=== PATIENT | male | born 1990 | race Caucasian/White ===

== ENCOUNTER 2021-10-04 20:35 | Inpatient (IN) | payer OTHER ==
--- NOTE | 2021-10-04 21:22 | ED ---
Recheck HPI - General Chief Complaint: Recheck/Abnormal Lab/Rx Stated Complaint: Abnormal Labs Time Seen by Provider: 10/04/21 20:50 Source: patient, RN/MD, EMS, RN notes reviewed Mode of arrival: EMS - History of Present Illness Initial Comments: 30-year-old male with a benign past medical history but a family history of a second cousin leukemia who presents by EMS from [facility] after being found to be anemic with a hemoglobin level IV.7 and a negative workup with r espect to CAT scans of the head neck chest abdomen pelvis. Hemoccult was negative. He had no history of tarry stools any type of GI bleeding. He does state that he has been feeling fatigued and having generalized weakness sleeping a lot more than normal over the past month getting progressively worse. He did have a headache and some neck pain. He is sleepy more everyday basically states he's been laying on the couch. He has had weight loss decreased appetite says sure exactly what when he lost. He was transferred here for further evaluation and treatment please see the transfer record for complete history and EKG which showed no acute abnormalities. The imaging as stated above. - Related Data Home Medications Medication Instructions Recorded Confirmed No Known Home Medications 10/04/21 10/04/21 Allergies Allergy/AdvReac Type Severity Reaction Status Date / Time No Known Allergies Allergy Unverified 10/04/21 22:26 Review of Systems ROS Statement: Those systems with pertinent positive or pertinent negative responses have been documented in the HPI. ROS Other: All systems not noted in ROS Statement are negative. Past Medical History Past Medical History: No Reported History History of Any Multi-Drug Resistant Organisms: None Reported Past Surgical History: No Surgical Hx Reported Past Psychological History: No Psychological Hx Reported Smoking Status: Current every day smoker Past Alcohol Use History: None Reported Past Drug Use History: Marijuana General Exam - General Exam Comments Initial Comments: This is a well-developed asthenic appearing male who is awake alert oriented 4 he does appear to be pale Limitations: no limitations General appearance: alert, in no apparent distress Head exam: Present: atraumatic, normocephalic, normal inspection Eye exam: Present: normal appearance, PERRL, EOMI. Absent: scleral icterus, conjunctival injection, periorbital swelling ENT exam: Present: mucous membranes dry, other (Pale buccal mucosa) Neck exam: Present: normal inspection, full ROM, other. Absent: tenderness, meningismus, lymphadenopathy Respiratory exam: Present: normal lung sounds bilaterally. Absent: respiratory distress, wheezes, rales, rhonchi, stridor Cardiovascular Exam: Present: regular rate, normal rhythm, tachycardia, normal heart sounds. Absent: systolic murmur, diastolic murmur, rubs, gallop, clicks GI/Abdominal exam: Present: soft, normal bowel sounds. Absent: distended, tenderness, guarding, rebound, rigid Extremities exam: Present: normal inspection, full ROM, normal capillary refill. Absent: tenderness, pedal edema, joint swelling, calf tenderness Back exam: Present: normal inspection Neurological exam: Present: alert, oriented X3, CN II-XII intact Psychiatric exam: Present: normal affect, normal mood Skin exam: Present: warm, dry, intact, pallor. Absent: rash Course Vital Signs 10/04/21 20:44 Temperature 98.7 F Pulse Rate 109 H Respiratory 18 Rate Blood Pressure 144/76 O2 Sat by Pulse 100 Oximetry Medical Decision Making - Medical Decision Making I did discuss findings with patient family also with Dr. palacios and Dr. Blanchard patient will be admitted for IV transfusion of blood also hematology oncology will be consulted. Patient does not need to go to the unit this time he is hemodynamically stable no GI bleeding. Myelodysplastic disorder is considered - Lab Data Result diagrams: 10/04/21 21:53 Lab Results 10/04/21 10/04/21 Range/Units 21:53 21:53 WBC 10.8 H (3.8-10.6) k/uL RBC 1.33 L (4.30-5.90) m/uL Hgb 4.5 L* (13.0-17.5) gm/dL Hct 14.0 L* (39.0-53.0) % MCV 105.5 H (80.0-100.0) fL MCH 33.9 (25.0-35.0) pg MCHC 32.2 (31.0-37.0) g/dL RDW 19.4 H (11.5-15.5) % Plt Count 369 (150-450) k/uL MPV 7.9 Neutrophils % 84 % Lymphocytes % 11 % Monocytes % 3 % Eosinophils % 1 % Basophils % 0 % Neutrophils # 9.0 H (1.3-7.7) k/uL Lymphocytes # 1.2 (1.0-4.8) k/uL Monocytes # 0.4 (0-1.0) k/uL Eosinophils # 0.1 (0-0.7) k/uL Basophils # 0.0 (0-0.2) k/uL Hypochromasia Slight Poikilocytosis Slight Anisocytosis Slight Macrocytosis Moderate Blood Type Recheck No Previous Record Bld Type Recheck Status CABO Indicated Spec Expiration Date 10/07/20212352 Disposition Clinical Impression: Symptomatic anemia Disposition: ADMITTED IP TO THIS [facility] Condition: Stable Referrals: None,Stated [Primary Care Provider] - 1-2 days Decision Date: 10/04/21 Decision Time: 22:30
[2021-10-04 22:10] LABS: Anisocytosis Slight; Basophils % (A) 0 %; Eosinophils # (A) 0.1 k/uL (0-0.7); Eosinophils % (A) 1 %; Hypochromasia Slight; Lymphocytes # (A) 1.2 k/uL (1.0-4.8); Lymphocytes % (A) 11 %; MCH 33.9 pg (25.0-35.0); MCHC 32.2 g/dL (31.0-37.0); MCV 105.5 fL (80.0-100.0); Macrocytosis Moderate; Mean Platelet Volume 7.9; Monocytes # (A) 0.4 k/uL (0-1.0); Monocytes % (A) 3 %; Neutrophils % (A) 84 %; Platelet Count 369 k/uL (150-450); Poikilocytosis Slight; RBC 1.33 m/uL (4.30-5.90); RDW 19.4 % (11.5-15.5); WBC 10.8 k/uL (3.8-10.6)
[2021-10-04 22:14] LABS: HGB 4.5 gm/dL (13.0-17.5)
[2021-10-04] MEDS ORDERED: NALOXONE 0.4 MG/ML 1 ML VIAL IV PRN (23:06)
[2021-10-04] MEDS ORDERED: SODIUM CHLORIDE 0.9% 1,000 ML IV SCH (23:15)
[2021-10-04 23:36] LABS: Appearance,Urine Clear (Clear); Bilirubin,Urine Negative (Negative); Blood,Urine Negative (Negative); Color,Urine Light Yellow; Glucose,Urine (UA) Negative (Negative); Ketones,Urine Negative (Negative); Leukocyte Esterase,Urine Negative (Negative); Nitrite,Urine Negative (Negative); Protein,Urine Negative (Negative); Specific Gravity,Urine 1.012 (1.001-1.035); Urobilinogen,Urine <2.0 mg/dL (<2.0)
[2021-10-04 23:54] LABS: ALT 40 U/L (4-49); AST 46 U/L (17-59); African American GFR (CKD) >90 (>60 ml/min/1.73 sqM); Albumin 4.3 g/dL (3.5-5.0); Alkaline Phosphatase 42 U/L (38-126); Anion Gap 5 mmol/L; Blood Urea Nitrogen 11 mg/dL (9-20); Calcium 8.8 mg/dL (8.4-10.2); Carbon Dioxide 22 mmol/L (22-30); Chloride 111 mmol/L (98-107); Glucose 125 mg/dL (74-99); LDH 1068 U/L (313-618); Non-African American GFR(CKD) >90 (>60 ml/min/1.73 sqM); Potassium 4.3 mmol/L (3.5-5.1); Sodium 138 mmol/L (137-145); Total Protein 6.8 g/dL (6.3-8.2)
[2021-10-05 00:10] LABS: Reticulocyte % 21.2 % (0.5-2.0)
[2021-10-05] MEDS: ACETAMINOPHEN TAB 325 MG TAB PO PRN ×2 (00:26→06:42)
[2021-10-05 02:04] LABS: Anisocytosis Moderate; Hypochromasia Moderate; MCH 34.5 pg (25.0-35.0); MCHC 31.2 g/dL (31.0-37.0); MCV 110.8 fL (80.0-100.0); Macrocytosis Marked; Mean Platelet Volume 8.2; Platelet Count 390 k/uL (150-450); Poikilocytosis Slight; RBC 1.28 m/uL (4.30-5.90); RDW 20.1 % (11.5-15.5); WBC 11.6 k/uL (3.8-10.6)
[2021-10-05 02:33] LABS: HCT 14.2 % (39.0-53.0); HGB 4.4 gm/dL (13.0-17.5)
[2021-10-05 03:37] LABS: Band Neutrophils % 1 %; Lymphocytes # (M) 1.62 k/uL (1.0-4.8); Monocytes # (M) 1.16 k/uL (0-1.0); Neutrophils % (M) 75 %; Nucleated Red Blood Cells 0 /100 WBC (0-0); Total Cells Counted 100
[2021-10-05 03:38] LABS: Polychromasia Present
[2021-10-05] MEDS ORDERED: methylPREDNISolone SOD SUCCIN 1,000 MG in SODIUM CHLORIDE 0.9% 250 ML IVPB STA (04:45)
[2021-10-05 05:17] LABS: Glucose,Whole Blood 120 mg/dL (75-99)
[2021-10-05 05:31] LABS: Bilirubin, Delta 0.3 mg/dL (0.0-0.2); Bilirubin,Unconjugated 1.6 mg/dL (0.0-1.1); Total Bilirubin 1.9 mg/dL (0.2-1.3)
--- NOTE | 2021-10-05 08:02 | P.HPIM ---
History of Present Illness This is a pleasant 50 years old male with no significant past medical history His been feeling sick on and off for the last few weeks, his was in his becoming pale and she got concerned However yesterday when he passed out next to his house for about 5-10 seconds she got concerned and met him come to emergency room. Patient also complaining of from presyncope However he denies any headache or weakness or numbness. No blurred vision or slurred speech. No chest pain or dyspnea. No abdominal pain or nausea vomiting or diarrhea. However patient vomited twice to days ago with no blood. No urinary complaints of urgency or hesitancy. No dysuria. He denies drinking alcohol but he smokes about 1 pack per day and he is co unseled to quit and he agrees but declines nicotine patch. He uses characterization marijuana at times. He denies any family history of blood diseases He was transferred from [place]. Hemoglobin of 4.7. Jaundice, Pale. which pt states is been happening since saturday On reviewing the records from [facility]: CT of the chest, with CT of the abdomen and pelvis with contrast showing no acu te cardiopulmonary process. No focal consolidations. No pneumothoraces is or pleural effusions. Nonobstructive bowel gas pattern. No free air or fluid. No mesenteric lymphadenopathy or mass. There is a short segment of distal transverse colon proximal descending colon at the splenic flexure with mildly thickened bowel wall which could reflect a very low-grade colitis or possibly incomplete distention. Dorsal structures are intact Also he had CT of the cervical spine showed no acute process. Chronic appearing less than 5% compression deformity of the superior endplate of T1 vertebral body, MRI would be helpful. CT of the brain dated for acute process. Hemodynamically he is a stable and he is afebrile. Labs reviewed, hemoglobin on presentation was 4.5, repeat hemoglobin is 4.4. WBC is 11.6. Platelet count normal 390. Reticulocyte count is elevated at 21.2. BMP is unremarkable except for mildly elevated glucose is 125. Total bilirubin is elevated at 2.0, direct bilirubin is elevated at 1.6 while direct bilirubin is 0. Liver enzymes AST, ALT and alkaline phosphatase not elevated Lactate dehydrogenase is high at 1068. . Urinalysis is normal. In the emergency room he received salmeterol 1000 mg, Tylenol and normal sinus and a 5 mm prior He is admitted to the ICU with pulmonary/critical care team consult and hematology consults Review of Systems CONSTITUTIONAL: No fever, no malaise, no fatigue. HEENT: No recent visual problems or hearing problems. Denied any sore throat. CARDIOVASCULAR: No orthopnea, PND, no palpitations, no syncope. PULMONARY: No shortness of breath, no cough, no hemoptysis. GASTROINTESTINAL: No diarrhea, no nausea, no vomiting, no abdominal pain. Normoactive bowel sounds. NEUROLOGICAL: No headaches, no weakness, no numbness. HEMATOLOGICAL: Denies any bleeding or petechiae. GENITOURINARY: Denies any burning micturition, frequency, or urgency. MUSCULOSKELETAL/RHEUMATOLOGICAL: Denies any joint pain, swelling, or any muscle pain. ENDOCRINE: Denies any polyuria or polydipsia. Past Medical History Past Medical History: No Reported History History of Any Multi-Drug Resistant Organisms: None Reported Past Surgical History: No Surgical Hx Reported Past Psychological History: No Psychological Hx Reported Smoking Status: Current every day smoker Past Alcohol Use History: None Reported Past Drug Use History: Marijuana Medications and Allergies Home Medications Medication Instructions Recorded Confirmed Type No Known Home Medications 10/04/21 10/04/21 History Allergies Allergy/AdvReac Type Severity Reaction Status Date / Time No Known Allergies Allergy Unverified 10/04/21 22:26 Physical Exam Vitals: Vital Signs Temp Pulse Pulse Resp BP BP Pulse Ox 10/05/21 06:10 91 18 121/74 97 10/05/21 06:00 89 72 H 124/81 97 10/05/21 05:50 97 21 124/81 97 10/05/21 05:40 102 H 24 124/81 100 10/05/21 05:30 99.2 F 101 H 98 19 127/79 132/78 96 10/05/21 05:20 101 H 17 132/78 96 10/05/21 05:10 108 H 16 10/05/21 05:09 111 H 12 10/05/21 03:46 113 H 13 129/75 100 10/05/21 01:35 121 H 18 129/69 100 10/05/21 00:21 98.7 F 115 H 20 124/84 99 10/04/21 20:44 98.7 F 109 H 18 144/76 100 Intake and Output 10/04/21 10/04/21 10/05/21 14:59 22:59 06:59 Intake Total 75 Balance 75 Intake: Intake, IV Titration 75 Amount Sodium Chloride 0.9% 1, 75 000 ml @ 75 mls/hr IV . [id number] [facility] Rx#:[id number] Other: Weight 70.76 kg 70.76 kg GENERAL: The patient is alert and oriented x3, not in any acute distress. Well developed, well nourished. -HEENT: Pupils are round and equally reacting to light. EOMI. No scleral icterus. No conjunctival pallor. Normocephalic, atraumatic. No pharyngeal erythema. No thyromegaly. Pale CARDIOVASCULAR: S1 and S2 present. No murmurs, rubs, or gallops. PULMONARY: Chest is clear to auscultation, no wheezing or crackles. ABDOMEN: Soft, nontender, nondistended, normoactive bowel sounds. No palpable organomegaly. MUSCULOSKELETAL: No joint swelling or deformity. EXTREMITIES: No cyanosis, clubbing, or pedal edema. NEUROLOGICAL: Gross neurological examination did not reveal any focal deficits. SKIN: No rashes. No petechiae Results CBC & Chem 7: 10/05/21 01:54 10/04/21 21:53 Labs: Abnormal Lab Results - Last 24 Hours (Table) 10/04/21 10/04/21 10/04/21 Range/Units 21:53 21:53 22:47 WBC 10.8 H (3.8-10.6) k/uL RBC 1.33 L (4.30-5.90) m/uL Hgb 4.5 L* (13.0-17.5) gm/dL Hct 14.0 L* (39.0-53.0) % MCV 105.5 H (80.0-100.0) fL RDW 19.4 H (11.5-15.5) % Neutrophils # 9.0 H (1.3-7.7) k/uL Neutrophils # (Manual) (1.3-7.7) k/uL Monocytes # (Manual) (0-1.0) k/uL Macrocytosis Retic Count 21.2 H (0.5-2.0) % Chloride 111 H (98-107) mmol/L Glucose 125 H (74-99) mg/dL POC Glucose (mg/dL) (75-99) mg/dL Total Bilirubin 2.0 H (0.2-1.3) mg/dL Unconjugated Bilirubin (0.0-1.1) mg/dL Delta Bilirubin (0.0-0.2) mg/dL Lactate Dehydrogenase 1068 H (313-618) U/L 10/05/21 10/05/21 10/05/21 Range/Units 01:54 04:36 05:15 WBC 11.6 H (3.8-10.6) k/uL RBC 1.28 L (4.30-5.90) m/uL Hgb 4.4 L* (13.0-17.5) gm/dL Hct 14.2 L* (39.0-53.0) % MCV 110.8 H D (80.0-100.0) fL RDW 20.1 H (11.5-15.5) % Neutrophils # (1.3-7.7) k/uL Neutrophils # (Manual) 8.80 H (1.3-7.7) k/uL Monocytes # (Manual) 1.16 H (0-1.0) k/uL Macrocytosis Marked A Retic Count (0.5-2.0) % Chloride (98-107) mmol/L Glucose (74-99) mg/dL POC Glucose (mg/dL) 120 H (75-99) mg/dL Total Bilirubin 1.9 H (0.2-1.3) mg/dL Unconjugated Bilirubin 1.6 H (0.0-1.1) mg/dL Delta Bilirubin 0.3 H (0.0-0.2) mg/dL Lactate Dehydrogenase (313-618) U/L Assessment and Plan Assessment: Acute severe anemia suspicious for hemolytic anemia elevated indirect bilirubin secondary to above Nicotine dependence Plan: A pleasant 50 years old male who presents with acute severe anemia Transfused blood 2, ordered, there was difficulty with obtaining blood match still pending so far. Continue with anemia workup Critical care team consult Hematology/oncology consult Counseling is provided for the patient for smoking cessation and he agrees but declines nicotine patch Labs and medication were reviewed.. Continue same treatment. Continue with symptomatic treatment. Resume home medication. Monitor lytes and vitals. DVT and GI prophylaxis. Further recommendations depends on the clinical course of the patient DVT prophylaxis: no Subcutaneous heparin Due to severe anemia GI Prophylaxis: Pepcid Prognosis is guarded
[2021-10-05 09:29] LABS: % Iron Saturation 30.06 (15.00-50.00); Iron 99 ug/dL (65-175); Total Iron Binding Capacity 329 ug/dL (228-460)
--- NOTE | 2021-10-05 10:06 | P.CNPUL ---
History of Present Illness Consult date: 10/05/21 Requesting physician: Mark Hernandez Reason for consult: other Chief complaint: Anemia History of present illness: Pulmonary consult dated 10/05/2021. 30-year-old male seen in the emergency room on October 04. He has no significant past medical history. He came into the hospital because his noted that he was very pale and weak, He actually fell, and she thought he was looking a little yellow. The patient initially presented to [facility], and was found be quite anemic, and was transferred down to our hospital. There is no history of coffee ground emesis, hematuria, hematemesis, melena. The patient's vital signs in our emergency room were stable. There is no active bleeding. The patient was eventually transferred to the intensive care unit, as the blood bank was unable to get the patient any blood for transfusion purposes. The patient may be having a hemolytic anemia. He has an elevated reticulocyte count, bilirubin, and LDH. The patient has yet to be seen by hematology. The patient does occasionally use marijuana, and does smoke tobacco. Denies any alcohol. He's currently on room air. He is getting saline at 75 mL an hour. White count 11.6, hemoglobin 4.4, hematocrit 14.2, and platelet count 390,000. His reticulocyte count is 21.2. Haptoglobin is less than 10. Sodium and potassium are normal. Chloride 111, CO2 22, BUN 11, and creatinine 0.77. Total bilirubin is 2. Unconjugated bilirubin is 1.6. LDH is 1068. Review of Systems REVIEW OF SYSTEMS: CONSTITUTIONAL: Weakness. NEUROLOGIC: [ Negative.] HEENT: [ Negative.] CARDIAC: [Negative.] PULMONARY: [Negative.] GI: Jaundiced. : [Negative.] RHEUMATOLOGIC: [ Negative.] IMMUNOLOGIC: [ Negative.] ENDOCRINE: [Negative. ] DERMATOLOGIC: Pale skin. Past Medical History Past Medical History: No Reported History History of Any Multi-Drug Resistant Organisms: None Reported Past Surgical History: No Surgical Hx Reported Past Psychological History: No Psychological Hx Reported Smoking Status: Current every day smoker Past Alcohol Use History: None Reported Past Drug Use History: Marijuana Medications and Allergies Home Medications Medication Instructions Recorded Confirmed Type No Known Home Medications 10/04/21 10/04/21 History Allergies Allergy/AdvReac Type Severity Reaction Status Date / Time No Known Allergies Allergy Unverified 10/04/21 22:26 Physical Exam Osteopathic Statement: *. No significant issues noted on an osteopathic structural exam other than those noted in the History and Physical/Consult. Vitals: Vital Signs Temp Pulse Pulse Resp BP BP Pulse Ox 10/05/21 08:00 98.6 F 99 27 H 116/68 96 10/05/21 07:30 92 14 129/74 97 10/05/21 07:00 99 15 114/66 97 10/05/21 06:30 101 H 16 121/74 96 10/05/21 06:10 91 18 121/74 97 10/05/21 06:00 89 72 H 124/81 97 10/05/21 05:50 97 21 124/81 97 10/05/21 05:40 102 H 24 124/81 100 10/05/21 05:30 99.2 F 101 H 98 19 127/79 132/78 96 10/05/21 05:20 101 H 17 132/78 96 10/05/21 05:10 108 H 16 10/05/21 05:09 111 H 12 10/05/21 03:46 113 H 13 129/75 100 10/05/21 01:35 121 H 18 129/69 100 10/05/21 00:21 98.7 F 115 H 20 124/84 99 10/04/21 20:44 98.7 F 109 H 18 144/76 100 Intake and Output 10/04/21 10/05/21 10/05/21 22:59 06:59 14:59 Intake Total 150 75 Balance 150 75 Intake: Intake, IV Titration 150 75 Amount Sodium Chloride 0.9% 1, 150 75 000 ml @ 75 mls/hr IV . [id number] [facility] Rx#:[id number] Other: Weight 70.76 kg 70.76 kg No acute distress, oriented 3. Very pale. HEENT examination is grossly unremarkable. Neck supple. Full range of motion. No adenopathy thyromegaly or neck vein distention. Cardiovascular examination reveals regular rhythm rate. S1-S2 normal. No S3 or S4. No discernible murmur noted. Heart rate 93 bpm. Lungs reveal clear breath sounds. Breath sounds are equal bilaterally. No adventitious lung sounds including wheezes rhonchi or crackles. Abdomen soft bowel sounds are heard. No masses or tenderness. Extremities are intact. No cyanosis clubbing or edema. Skin is without rash or lesion. Neurologic examination is brief but nonfocal. Results - Laboratory Findings CBC and BMP: 10/05/21 01:54 10/04/21 21:53 Abnormal lab findings: Abnormal Labs 10/04/21 10/04/21 10/04/21 21:53 21:53 21:53 WBC 10.8 H RBC 1.33 L Hgb 4.5 L* Hct 14.0 L* MCV 105.5 H RDW 19.4 H Neutrophils # 9.0 H Neutrophils # (Manual) Monocytes # (Manual) Macrocytosis Retic Count Haptoglobin <10.0 L Chloride 111 H Glucose 125 H POC Glucose (mg/dL) Total Bilirubin 2.0 H Unconjugated Bilirubin Delta Bilirubin Lactate Dehydrogenase 1068 H 10/04/21 10/05/21 10/05/21 22:47 01:54 04:36 WBC 11.6 H RBC 1.28 L Hgb 4.4 L* Hct 14.2 L* MCV 110.8 H D RDW 20.1 H Neutrophils # Neutrophils # (Manual) 8.80 H Monocytes # (Manual) 1.16 H Macrocytosis Marked A Retic Count 21.2 H Haptoglobin Chloride Glucose POC Glucose (mg/dL) Total Bilirubin 1.9 H Unconjugated Bilirubin 1.6 H Delta Bilirubin 0.3 H Lactate Dehydrogenase 10/05/21 05:15 WBC RBC Hgb Hct MCV RDW Neutrophils # Neutrophils # (Manual) Monocytes # (Manual) Macrocytosis Retic Count Haptoglobin Chloride Glucose POC Glucose (mg/dL) 120 H Total Bilirubin Unconjugated Bilirubin Delta Bilirubin Lactate Dehydrogenase Assessment and Plan Assessment: Rule out acute hemolytic anemia. Macrocytosis. Mild hyperbilirubinemia. No significant past medical history Plan: Plan dated 10/05/2021. The patient will be seen by hematology. 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 Additional recommendations and suggestions are forthcoming. Once hematology sees the patient, the patient can be transferred out of the intensive care unit. Because of the blood mismatch and, the patient was not able to get a transfusion. We will continue to follow make recommendations where appropriate. Time with Patient: Greater than 30
[2021-10-05] MEDS: PANTOPRAZOLE 40 MG TABLET PO SCH ×2 (10:29→18:12)
[2021-10-05 10:34] LABS: Rouleaux Present
[2021-10-05 12:28] LABS: Anisocytosis Moderate; Hypochromasia Marked; MCH 34.5 pg (25.0-35.0); MCHC 30.7 g/dL (31.0-37.0); MCV 112.3 fL (80.0-100.0); Macrocytosis Marked; Mean Platelet Volume 7.7; Platelet Count 315 k/uL (150-450); Poikilocytosis Moderate; RBC 1.11 m/uL (4.30-5.90)
[2021-10-05 12:40] LABS: LDH 934 U/L (313-618)
[2021-10-05 12:43] LABS: ALT 33 U/L (4-49); AST 33 U/L (17-59); African American GFR (CKD) >90 (>60 ml/min/1.73 sqM); Alkaline Phosphatase 39 U/L (38-126); Anion Gap 7 mmol/L; Blood Urea Nitrogen 9 mg/dL (9-20); C Reactive Protein <0.5 mg/dL (<1.0); Calcium 8.6 mg/dL (8.4-10.2); Carbon Dioxide 23 mmol/L (22-30); Chloride 111 mmol/L (98-107); Glucose 118 mg/dL (74-99); Non-African American GFR(CKD) >90 (>60 ml/min/1.73 sqM); Potassium 3.5 mmol/L (3.5-5.1); Sodium 141 mmol/L (137-145); Total Bilirubin 2.4 mg/dL (0.2-1.3); Total Protein 6.4 g/dL (6.3-8.2)
[2021-10-05 12:48] LABS: HGB 3.8 gm/dL (13.0-17.5)
[2021-10-05 12:49] LABS: HCT 12.4 % (39.0-53.0)
[2021-10-05 12:56] LABS: INR 1.1 (<1.2); Prothrombin Time 11.8 sec (9.0-12.0)
[2021-10-05 12:59] LABS: Partial Thromboplastin Time 21.1 sec (22.0-30.0)
[2021-10-05] MEDS ORDERED: BUTALB/APAP/CAFF 50-325-40MG TAB PO STA (14:11)
[2021-10-05] MEDS: FOLIC ACID 1 MG TAB PO SCH (14:44)
[2021-10-05 15:42] LABS: Band Neutrophils % 2 %; Metamyelocytes % 1 %; Neutrophils % (M) 73 %; Nucleated Red Blood Cells 3 /100 WBC (0-0); Total Cells Counted 200
[2021-10-05 15:43] LABS: Lymphocytes # (M) 1.54 k/uL (1.0-4.8); Monocytes # (M) 0.77 k/uL (0-1.0); Polychromasia Present; WBC 9.6 k/uL (3.8-10.6)
[2021-10-05 18:19] LABS: Rheumatoid Factor, Qnt <10 IU/mL (0-15)
[2021-10-05 18:22] LABS: Haptoglobin 20.5 mg/dL (31.2-198.0)
[2021-10-05] MEDS ORDERED: Potassium Replacement Protocol 1 EACH MISC MISCELLANE PRN (19:05)
[2021-10-05] MEDS: POTASSIUM CHLORIDE ER 20 MEQ TAB.ER PO SCH ×2 (19:09→20:59)
--- NOTE | 2021-10-05 20:45 | P.CONS ---
History of Present Illness - Reason for Consult Consult date: 10/05/21 Severe Anemia Requesting physician: Ac Paris - Chief Complaint SOB, Fatigue - History of Present Illness Jose Manuel is a pleasant young gentleman who over the past few weeks has not been feeling well. He had a virus of unknown a few weeks ago, as well as the past few months he has been smoking more and been under more stress. He has quite drinking alcohol, used to have a few beers daily and quite caffeine. He started feeling more and more fatigued the past few weeks and over this past weekend his said she noticed his color changed. Therefore brought to ER and found hemoglobin 4.5, he did not respond to transfusion in ER therefore oncology was contacted overnight and hemolytic work-up was ordered. LDH increased and Haptoglbin less than 10. He originally presented to [facility] and underwent CTs chest, abd, pelvis. He then was transferred down to [facility]. Review of Systems All systems: negative Constitutional: Reports as per HPI Past Medical History Past Medical History: No Reported History History of Any Multi-Drug Resistant Organisms: None Reported Past Surgical History: No Surgical Hx Reported Past Psychological History: No Psychological Hx Reported Smoking Status: Current every day smoker Past Alcohol Use History: None Reported Past Drug Use History: Marijuana Medications and Allergies Home Medications Medication Instructions Recorded Confirmed Type No Known Home Medications 10/04/21 10/04/21 History Allergies Allergy/AdvReac Type Severity Reaction Status Date / Time No Known Allergies Allergy Unverified 10/04/21 22:26 Physical Exam Vitals: Vital Signs Temp Pulse Pulse Resp BP BP Pulse Ox 10/05/21 10:00 93 16 107/58 97 10/05/21 09:30 98 6 L 111/60 99 10/05/21 09:00 101 H 18 128/63 98 10/05/21 08:30 131 H 23 126/74 10/05/21 08:00 98.6 F 99 27 H 116/68 96 10/05/21 07:30 92 14 129/74 97 10/05/21 07:00 99 15 114/66 97 10/05/21 06:30 101 H 16 121/74 96 10/05/21 06:10 91 18 121/74 97 10/05/21 06:00 89 72 H 124/81 97 10/05/21 05:50 97 21 124/81 97 10/05/21 05:40 102 H 24 124/81 100 10/05/21 05:30 99.2 F 101 H 98 19 127/79 132/78 96 10/05/21 05:20 101 H 17 132/78 96 10/05/21 05:10 108 H 16 10/05/21 05:09 111 H 12 10/05/21 03:46 113 H 13 129/75 100 10/05/21 01:35 121 H 18 129/69 100 10/05/21 00:21 98.7 F 115 H 20 124/84 99 10/04/21 20:44 98.7 F 109 H 18 144/76 100 Intake and Output 10/04/21 10/05/21 10/05/21 22:59 06:59 14:59 Intake Total 150 225 Balance 150 225 Intake: Intake, IV Titration 150 225 Amount Sodium Chloride 0.9% 1, 150 225 000 ml @ 75 mls/hr IV . [id number] [facility] Rx#:[id number] Other: # Voids 1 Weight 70.76 kg 70.76 kg Ashy/Jaundice in color NAD Alert and oriented x3 Lungs CTA Abdomen soft LE no swelling Results CBC & Chem 7: 10/05/21 12:02 10/05/21 12:02 Labs: Abnormal Lab Results - Last 24 Hours (Table) 10/04/21 10/04/21 10/04/21 Range/Units 21:53 21:53 21:53 WBC 10.8 H (3.8-10.6) k/uL RBC 1.33 L (4.30-5.90) m/uL Hgb 4.5 L* (13.0-17.5) gm/dL Hct 14.0 L* (39.0-53.0) % MCV 105.5 H (80.0-100.0) fL RDW 19.4 H (11.5-15.5) % Neutrophils # 9.0 H (1.3-7.7) k/uL Neutrophils # (Manual) (1.3-7.7) k/uL Monocytes # (Manual) (0-1.0) k/uL Macrocytosis Retic Count (0.5-2.0) % Haptoglobin (31.2-198.0) mg/dL Chloride 111 H (98-107) mmol/L Glucose 125 H (74-99) mg/dL POC Glucose (mg/dL) (75-99) mg/dL Total Bilirubin 2.0 H (0.2-1.3) mg/dL Unconjugated Bilirubin (0.0-1.1) mg/dL Delta Bilirubin (0.0-0.2) mg/dL Lactate Dehydrogenase 1068 H (313-618) U/L Crossmatch See Detail 10/04/21 10/04/21 10/05/21 Range/Units 21:53 22:47 01:54 WBC 11.6 H (3.8-10.6) k/uL RBC 1.28 L (4.30-5.90) m/uL Hgb 4.4 L* (13.0-17.5) gm/dL Hct 14.2 L* (39.0-53.0) % MCV 110.8 H D (80.0-100.0) fL RDW 20.1 H (11.5-15.5) % Neutrophils # (1.3-7.7) k/uL Neutrophils # (Manual) 8.80 H (1.3-7.7) k/uL Monocytes # (Manual) 1.16 H (0-1.0) k/uL Macrocytosis Marked A Retic Count 21.2 H (0.5-2.0) % Haptoglobin <10.0 L (31.2-198.0) mg/dL Chloride (98-107) mmol/L Glucose (74-99) mg/dL POC Glucose (mg/dL) (75-99) mg/dL Total Bilirubin (0.2-1.3) mg/dL Unconjugated Bilirubin (0.0-1.1) mg/dL Delta Bilirubin (0.0-0.2) mg/dL Lactate Dehydrogenase (313-618) U/L Crossmatch 10/05/21 10/05/21 Range/Units 04:36 05:15 WBC (3.8-10.6) k/uL RBC (4.30-5.90) m/uL Hgb (13.0-17.5) gm/dL Hct (39.0-53.0) % MCV (80.0-100.0) fL RDW (11.5-15.5) % Neutrophils # (1.3-7.7) k/uL Neutrophils # (Manual) (1.3-7.7) k/uL Monocytes # (Manual) (0-1.0) k/uL Macrocytosis Retic Count (0.5-2.0) % Haptoglobin (31.2-198.0) mg/dL Chloride (98-107) mmol/L Glucose (74-99) mg/dL POC Glucose (mg/dL) 120 H (75-99) mg/dL Total Bilirubin 1.9 H (0.2-1.3) mg/dL Unconjugated Bilirubin 1.6 H (0.0-1.1) mg/dL Delta Bilirubin 0.3 H (0.0-0.2) mg/dL Lactate Dehydrogenase (313-618) U/L Crossmatch Assessment and Plan (1) Hemolytic anemia Narrative/Plan: - Solu-medrol 60mg q6, PPI - Transfuse les than 6 - IV Hydration @75 - Folic Acid Current Visit: Yes Status: Acute Code(s): D58.9 - HEREDITARY HEMOLYTIC ANEMIA, UNSPECIFIED SNOMED Code(s): 18045259 (2) Negative direct Malika test Current Visit: Yes Status: Acute Code(s): QSY6667 - SNOMED Code(s): 408541992 Plan: Dr. Amor: I have completed the full history and ohysical and developed the above impression and plan, agree with dictation, dictated as ascribe.
[2021-10-05 20:47] LABS: Anisocytosis Moderate; Basophils # (A) 0.1 k/uL (0-0.2); Basophils % (A) 1 %; Eosinophils % (A) 0 %; HCT 20.3 % (39.0-53.0); Hypochromasia Slight; Lymphocytes # (A) 1.4 k/uL (1.0-4.8); Lymphocytes % (A) 12 %; MCH 32.1 pg (25.0-35.0); MCHC 31.5 g/dL (31.0-37.0); MCV 101.8 fL (80.0-100.0); Macrocytosis Moderate; Mean Platelet Volume 8.2; Monocytes # (A) 0.4 k/uL (0-1.0); Monocytes % (A) 3 %; Neutrophils # (A) 9.9 k/uL (1.3-7.7); Neutrophils % (A) 83 %; Platelet Count 331 k/uL (150-450); Poikilocytosis Slight; RBC 1.99 m/uL (4.30-5.90); RDW 22.6 % (11.5-15.5); WBC 11.9 k/uL (3.8-10.6)
[2021-10-05] MEDS ORDERED: SODIUM CHLORIDE 0.9% 1,000 ML IV SCH (21:15)
[2021-10-05 21:23] LABS: HGB 6.4 gm/dL (13.0-17.5)
[2021-10-05 23:24] LABS: Protein, Total 6.1 g/dL (6.2-8.2)
[2021-10-06 04:33] LABS: Anisocytosis Moderate; HCT 22.2 % (39.0-53.0); HGB 7.2 gm/dL (13.0-17.5); Hypochromasia Slight; MCH 32.5 pg (25.0-35.0); MCHC 32.5 g/dL (31.0-37.0); MCV 100.1 fL (80.0-100.0); Macrocytosis Moderate; Mean Platelet Volume 8.5; Platelet Count 309 k/uL (150-450); Poikilocytosis Slight; RBC 2.21 m/uL (4.30-5.90); RDW 22.2 % (11.5-15.5); WBC 10.4 k/uL (3.8-10.6)
[2021-10-06 06:22] LABS: Anisocytosis Moderate; HCT 21.5 % (39.0-53.0); Hypochromasia Slight; MCH 32.4 pg (25.0-35.0); MCV 101.2 fL (80.0-100.0); Macrocytosis Moderate; Mean Platelet Volume 8.3; Platelet Count 320 k/uL (150-450); Poikilocytosis Slight; RBC 2.12 m/uL (4.30-5.90)
[2021-10-06 06:31] LABS: HGB 6.9 gm/dL (13.0-17.5)
[2021-10-06 06:53] LABS: ALT 35 U/L (4-49); AST 31 U/L (17-59); African American GFR (CKD) >90 (>60 ml/min/1.73 sqM); Alkaline Phosphatase 39 U/L (38-126); Anion Gap 7 mmol/L; Blood Urea Nitrogen 12 mg/dL (9-20); Calcium 8.4 mg/dL (8.4-10.2); Carbon Dioxide 24 mmol/L (22-30); Chloride 109 mmol/L (98-107); Glucose 126 mg/dL (74-99); LDH 874 U/L (313-618); Non-African American GFR(CKD) >90 (>60 ml/min/1.73 sqM); Potassium 4.3 mmol/L (3.5-5.1); Sodium 140 mmol/L (137-145); Total Protein 6.4 g/dL (6.3-8.2)
[2021-10-06] MEDS: PANTOPRAZOLE 40 MG TABLET PO SCH ×2 (06:53→17:49)
[2021-10-06] MEDS: methylPREDNISolone SOD SUCCI 125 MG/2 ML VIAL IV SCH ×5 (06:53→23:32)
[2021-10-06 07:03] LABS: Band Neutrophils % 3 %; Metamyelocytes % 1 %; Neutrophils % (M) 81 %; Nucleated Red Blood Cells 6 /100 WBC (0-0); Total Cells Counted 200
[2021-10-06 07:04] LABS: Lymphocytes # (M) 0.93 k/uL (1.0-4.8); Monocytes # (M) 0.72 k/uL (0-1.0); Polychromasia Present; WBC 10.3 k/uL (3.8-10.6)
[2021-10-06 07:09] LABS: Rouleaux Present
[2021-10-06] MEDS: FOLIC ACID 1 MG TAB PO SCH (10:01)
--- NOTE | 2021-10-06 10:52 | P.PN ---
Subjective Progress Note Date: 10/06/21 Principal diagnosis: Hemolytic anemia. Pulmonary consult dated 10/05/2021. 30-year-old male seen in the emergency room on October 04. He has no significant past medical history. He came into the hospital because his noted that he was very pale and weak, He actually fell, and she thought he was looking a little yellow. The patient initially presented to [facility], and was found be quite anemic, and was transferred down to our hospital. There is no history of coffee ground emesis, hematuria, hematemesis, melena. The patient's vital signs in our emergency room were stable. There is no active bleeding. The patient was eventually transferred to the intensive care unit, as the blood bank was unable to get the patient any blood for transfusion purposes. The patient may be having a hemolytic anemia. He has an elevated reticulocyte count, bilirubin, and LDH. The patient has yet to be seen by hematology. The patient does occasionally use marijuana, and does smoke tobacco. Denies any alcohol. He's currently on room air. He is getting saline at 75 mL an hour. White count 11.6, hemoglobin 4.4, hematocrit 14.2, and platelet count 390,000. His reticulocyte count is 21.2. Haptoglobin is less than 10. Sodium and potassium are normal. Chloride 111, CO2 22, BUN 11, and creatinine 0.77. Total bilirubin is 2. Unconjugated bilirubin is 1.6. LDH is 1068. Progress note dated 10/06/2021. 30-year-old male seen yesterday in evaluation. The patient was minute with anemia. He clearly has a hemolytic anemia. He had an elevated LDH, hyperbilirubinemia, macrocytosis, anemia, and an elevated reticulocyte count. He was started on Solu-Medrol by hematology. Clinically he is doing well. He received 3 units of packed red blood cells. She's on room air. Is not receiving any IV fluids. His most recent hemoglobin was 6.9. Clinically, the patient is very stable. The patient could be transferred out to the general medical floor. White count 10.3, hemoglobin 6.9, hematocrit 21.5, and platelet count 320,000. Sodium 140, potassium 4.3, chlorides 109, CO2 24, BUN 12, creatinine 0.76. Objective - Vital Signs Vital signs: Vital Signs Temp 97.8 F 10/06/21 08:00 Pulse 89 10/06/21 10:00 Resp 18 10/06/21 10:00 BP 133/86 10/06/21 10:00 Pulse Ox 99 10/06/21 10:00 FiO2 Intake & Output 10/05/21 10/06/21 10/06/21 18:59 06:59 18:59 Intake Total 1275 310 Output Total 1 1 500 Balance 1274 309 -500 Weight 70.2 kg Intake: Intake, IV Titration 475 Amount Sodium Chloride 0.9% 1, 475 000 ml @ 75 mls/hr IV . [id number] [facility] Rx#:[id number] Oral 490 Blood Product 310 310 Rc As-1 Unit 310 [id number] Rc As-1 Unit 0 [id number] Rc As-1 Unit 310 [id number] Output: Urine 0 1 500 Stool 1 Other: # Voids 1 1 - Exam No acute distress, oriented 3. Very pale. HEENT examination is grossly unremarkable. Neck supple. Full range of motion. No adenopathy thyromegaly or neck vein distention. Cardiovascular examination reveals regular rhythm rate. S1-S2 normal. No S3 or S4. No discernible murmur noted. Heart rate 89 bpm. Lungs reveal clear breath sounds. Breath sounds are equal bilaterally. No adventitious lung sounds including wheezes rhonchi or crackles. Abdomen soft bowel sounds are heard. No masses or tenderness. Extremities are intact. No cyanosis clubbing or edema. Skin is without rash or lesion. Neurologic examination is brief but nonfocal. - Labs CBC & Chem 7: 10/06/21 05:59 10/06/21 05:59 Labs: Abnormal Lab Results - Last 24 Hours (Table) 10/04/21 10/05/21 10/05/21 Range/Units 21:53 00:11 12:02 WBC (3.8-10.6) k/uL RBC 1.11 L (4.30-5.90) m/uL Hgb 3.8 L* (13.0-17.5) gm/dL Hct 12.4 L* (39.0-53.0) % MCV 112.3 H (80.0-100.0) fL MCHC 30.7 L (31.0-37.0) g/dL RDW 21.0 H (11.5-15.5) % Neutrophils # (1.3-7.7) k/uL Neutrophils # (Manual) (1.3-7.7) k/uL Lymphocytes # (Manual) (1.0-4.8) k/uL Metamyelocytes # (Man) 0.10 H (0) k/uL Nucleated RBCs 3 H (0-0) /100 WBC Macrocytosis Marked A Haptoglobin (31.2-198.0) mg/dL APTT (22.0-30.0) sec Chloride (98-107) mmol/L Glucose (74-99) mg/dL Ferritin 4234.0 H (22.0-322.0) ng/mL Total Bilirubin (0.2-1.3) mg/dL Lactate Dehydrogenase (313-618) U/L Total Protein (PEP) (6.2-8.2) g/dL Crossmatch See Detail Blood Bank Comment Sent to [facility] A Reference Lab Result See BBK REF Reports A 10/05/21 10/05/21 10/05/21 Range/Units 12:02 12:02 12:02 WBC (3.8-10.6) k/uL RBC (4.30-5.90) m/uL Hgb (13.0-17.5) gm/dL Hct (39.0-53.0) % MCV (80.0-100.0) fL MCHC (31.0-37.0) g/dL RDW (11.5-15.5) % Neutrophils # (1.3-7.7) k/uL Neutrophils # (Manual) (1.3-7.7) k/uL Lymphocytes # (Manual) (1.0-4.8) k/uL Metamyelocytes # (Man) (0) k/uL Nucleated RBCs (0-0) /100 WBC Macrocytosis Haptoglobin 20.5 L (31.2-198.0) mg/dL APTT (22.0-30.0) sec Chloride 111 H (98-107) mmol/L Glucose 118 H (74-99) mg/dL Ferritin (22.0-322.0) ng/mL Total Bilirubin 2.4 H (0.2-1.3) mg/dL Lactate Dehydrogenase 934 H (313-618) U/L Total Protein (PEP) 6.1 L (6.2-8.2) g/dL Crossmatch Blood Bank Comment Reference Lab Result 10/05/21 10/05/21 10/06/21 Range/Units 12:02 20:37 03:16 WBC 11.9 H (3.8-10.6) k/uL RBC 1.99 L 2.21 L (4.30-5.90) m/uL Hgb 6.4 L* D 7.2 L (13.0-17.5) gm/dL Hct 20.3 L 22.2 L (39.0-53.0) % MCV 101.8 H D 100.1 H (80.0-100.0) fL MCHC (31.0-37.0) g/dL RDW 22.6 H 22.2 H (11.5-15.5) % Neutrophils # 9.9 H (1.3-7.7) k/uL Neutrophils # (Manual) (1.3-7.7) k/uL Lymphocytes # (Manual) (1.0-4.8) k/uL Metamyelocytes # (Man) (0) k/uL Nucleated RBCs (0-0) /100 WBC Macrocytosis Haptoglobin (31.2-198.0) mg/dL APTT 21.1 L (22.0-30.0) sec Chloride (98-107) mmol/L Glucose (74-99) mg/dL Ferritin (22.0-322.0) ng/mL Total Bilirubin (0.2-1.3) mg/dL Lactate Dehydrogenase (313-618) U/L Total Protein (PEP) (6.2-8.2) g/dL [facility] Comment Reference Lab Result 10/06/21 10/06/21 10/06/21 Range/Units 05:59 05:59 05:59 WBC (3.8-10.6) k/uL RBC 2.12 L (4.30-5.90) m/uL Hgb 6.9 L* (13.0-17.5) gm/dL Hct 21.5 L (39.0-53.0) % MCV 101.2 H (80.0-100.0) fL MCHC (31.0-37.0) g/dL RDW 23.0 H (11.5-15.5) % Neutrophils # (1.3-7.7) k/uL Neutrophils # (Manual) 8.60 H (1.3-7.7) k/uL Lymphocytes # (Manual) 0.93 L (1.0-4.8) k/uL Metamyelocytes # (Man) 0.10 H (0) k/uL Nucleated RBCs 6 H (0-0) /100 WBC Macrocytosis Haptoglobin <10.0 L (31.2-198.0) mg/dL APTT (22.0-30.0) sec Chloride 109 H (98-107) mmol/L Glucose 126 H (74-99) mg/dL Ferritin (22.0-322.0) ng/mL Total Bilirubin 2.0 H (0.2-1.3) mg/dL Lactate Dehydrogenase 874 H (313-618) U/L Total Protein (PEP) (6.2-8.2) g/dL Crossmatch Blood Bank Comment Reference Lab Result Assessment and Plan Assessment: Rule out acute hemolytic anemia. Macrocytosis. Mild hyperbilirubinemia. No significant past medical history Plan: Plan dated 10/05/2021. The patient will be seen by hematology. 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 Additional recommendations and suggestions are forthcoming. Once hematology sees the patient, the patient can be transferred out of the intensive care unit. Because of the blood mismatch and, the patient was not able to get a transfusion. We will continue to follow make recommendations where appropriate. Plan dated 10/06/2021. The patient has received 3 units of packed red blood cells in total. The patient's hemoglobin this morning was 6.9. The patient's on room air. He's not receiving any IV fluids. He has been started on folate gas and Solu-Medrol as per pathology. The patient clearly has a hemolytic anemia. We will follow no further moving forward. The patient is stable, and can be transferred out of the intensive care unit. No active pulmonary issues or acute critical care issues at this time. Time with Patient: Less than 30
[2021-10-06 12:34] LABS: Free Kappa Lt Chain Qnt, Serum 1.28 mg/dL (0.33-1.94); Free Lambda Lt Chain Qnt, Seru 1.58 mg/dL (0.57-2.63)
--- NOTE | 2021-10-06 17:40 | P.PN ---
Subjective This is a pleasant 50 years old male with no significant past medical history His been feeling sick on and off for the last few weeks, his was in his becoming pale and she got concerned However yesterday when he passed out next to his house for about 5-10 seconds she got concerned and met him come to emergency room. Patient also complaining of from presyncope However he denies any headache or weakness or numbness. No blurred vision or sl urred speech. No chest pain or dyspnea. No abdominal pain or nausea vomiting or diarrhea. However patient vomited twice to days ago with no blood. No urinary complaints of urgency or hesitancy. No dysuria. He denies drinking alcohol but he smokes about 1 pack per day and he is counseled to quit and he agrees but declines nicotine patch. He uses characterization marijuana at times. He denies any family history of blood diseases He was transferred from [place]. Hemoglobin of 4.7. Jaundice, Pale. which pt states is been happening since saturday On reviewing the records from [facility]: CT of the chest, with CT of the abdomen and pelvis with contrast showing no acute cardiopulmonary process. No focal consolidations. No pneumothoraces is or pleural effusions. Nonobstructive bowel gas pattern. No free air or fluid. No mesenteric lymphadenopathy or mass. There is a short segment of distal transverse colon proximal descending colon at the splenic flexure with mildly thickened bowel wall which could reflect a very low-grade colitis or possibly incomplete distention. Dorsal structures are intact Also he had CT of the cervical spine showed no acute process. Chronic appearing less than 5% compression deformity of the superior endplate of T1 vertebral body, MRI would be helpful. CT of the brain dated for acute process. Hemodynamically he is a stable and he is afebrile. Labs reviewed, hemoglobin on presentation was 4.5, repeat hemoglobin is 4.4. WBC is 11.6. Platelet count normal 390. Reticulocyte count is elevated at 21.2. BMP is unremarkable except for mildly elevated glucose is 125. Total bilirubin is elevated at 2.0, direct bilirubin is elevated at 1.6 while direct bilirubin is 0. Liver enzymes AST, ALT and alkaline phosphatase not elevated Lactate dehydrogenase is high at 1068. . Urinalysis is normal. In the emergency room he received salmeterol 1000 mg, Tylenol and normal sinus and a 5 mm prior He is admitted to the ICU with pulmonary/critical care team consult and hematology consults 10/06/2021 Patient is symptomatic working in the room feeling much better and back to his normal self. He is hemodynamically stable. However his hemoglobin is still low 6.9 after 3 units of blood transfusion. His haptoglobin is still low. He still on IV Solu-Medrol and still other workup ordered by reproduction order processor team is pending. Patient informed and he agrees to stay. IV fluids was discontinued Objective - Vital Signs Vital signs: Vital Signs Temp 97.8 F 10/06/21 08:00 Pulse 71 10/06/21 11:00 Resp 18 10/06/21 11:00 BP 133/62 10/06/21 11:00 Pulse Ox 99 10/06/21 11:00 FiO2 Intake & Output 10/05/21 10/06/21 10/06/21 18:59 06:59 18:59 Intake Total 1275 310 Output Total 1 1 500 Balance 1274 309 -500 Weight 70.2 kg Intake: Intake, IV Titration 475 Amount Sodium Chloride 0.9% 1, 475 000 ml @ 75 mls/hr IV . [id number] [facility] Rx#:[id number] Oral 490 Blood Product 310 310 Rc As-1 Unit 310 [id number] Rc As-1 Unit 0 [id number] Rc As-1 Unit 310 [id number] Output: Urine 0 1 500 Stool 1 Other: # Voids 1 1 1 - Exam GENERAL: The patient is alert and oriented x3, not in any acute distress. Well developed, well nourished. HEENT: Pupils are round and equally reacting to light. EOMI. No scleral icterus. No conjunctival pallor. Normocephalic, atraumatic. No pharyngeal erythema. No thyromegaly. CARDIOVASCULAR: S1 and S2 present. No murmurs, rubs, or gallops. PULMONARY: Chest is clear to auscultation, no wheezing or crackles. ABDOMEN: Soft, nontender, nondistended, normoactive bowel sounds. No palpable organomegaly. MUSCULOSKELETAL: No joint swelling or deformity. EXTREMITIES: No cyanosis, clubbing, or pedal edema. NEUROLOGICAL: Gross neurological examination did not reveal any focal deficits. SKIN: No rashes. no petechiae. - Labs CBC & Chem 7: 10/06/21 05:59 10/06/21 05:59 Labs: Abnormal Lab Results - Last 24 Hours (Table) 10/04/21 10/05/21 10/05/21 Range/Units 21:53 00:11 12:02 WBC (3.8-10.6) k/uL RBC 1.11 L (4.30-5.90) m/uL Hgb 3.8 L* (13.0-17.5) gm/dL Hct 12.4 L* (39.0-53.0) % MCV 112.3 H (80.0-100.0) fL MCHC 30.7 L (31.0-37.0) g/dL RDW 21.0 H (11.5-15.5) % Neutrophils # (1.3-7.7) k/uL Neutrophils # (Manual) (1.3-7.7) k/uL Lymphocytes # (Manual) (1.0-4.8) k/uL Metamyelocytes # (Man) 0.10 H (0) k/uL Nucleated RBCs 3 H (0-0) /100 WBC Macrocytosis Marked A Haptoglobin (31.2-198.0) mg/dL APTT (22.0-30.0) sec Chloride (98-107) mmol/L Glucose (74-99) mg/dL Ferritin 4234.0 H (22.0-322.0) ng/mL Total Bilirubin (0.2-1.3) mg/dL Lactate Dehydrogenase (313-618) U/L Total Protein (PEP) (6.2-8.2) g/dL Crossmatch See Detail Blood Bank Comment Sent to [facility] A Reference Lab Result See BBK REF Reports A 10/05/21 10/05/21 10/05/21 Range/Units 12:02 12:02 12:02 WBC (3.8-10.6) k/uL RBC (4.30-5.90) m/uL Hgb (13.0-17.5) gm/dL Hct (39.0-53.0) % MCV (80.0-100.0) fL MCHC (31.0-37.0) g/dL RDW (11.5-15.5) % Neutrophils # (1.3-7.7) k/uL Neutrophils # (Manual) (1.3-7.7) k/uL Lymphocytes # (Manual) (1.0-4.8) k/uL Metamyelocytes # (Man) (0) k/uL Nucleated RBCs (0-0) /100 WBC Macrocytosis Haptoglobin 20.5 L (31.2-198.0) mg/dL APTT (22.0-30.0) sec Chloride 111 H (98-107) mmol/L Glucose 118 H (74-99) mg/dL Ferritin (22.0-322.0) ng/mL Total Bilirubin 2.4 H (0.2-1.3) mg/dL Lactate Dehydrogenase 934 H (313-618) U/L Total Protein (PEP) 6.1 L (6.2-8.2) g/dL [facility] Blood Bank Comment Reference Lab Result 10/05/21 10/05/21 10/06/21 Range/Units 12:02 20:37 03:16 WBC 11.9 H (3.8-10.6) k/uL RBC 1.99 L 2.21 L (4.30-5.90) m/uL Hgb 6.4 L* D 7.2 L (13.0-17.5) gm/dL Hct 20.3 L 22.2 L (39.0-53.0) % MCV 101.8 H D 100.1 H (80.0-100.0) fL MCHC (31.0-37.0) g/dL RDW 22.6 H 22.2 H (11.5-15.5) % Neutrophils # 9.9 H (1.3-7.7) k/uL Neutrophils # (Manual) (1.3-7.7) k/uL Lymphocytes # (Manual) (1.0-4.8) k/uL Metamyelocytes # (Man) (0) k/uL Nucleated RBCs (0-0) /100 WBC Macrocytosis Haptoglobin (31.2-198.0) mg/dL APTT 21.1 L (22.0-30.0) sec Chloride (98-107) mmol/L Glucose (74-99) mg/dL Ferritin (22.0-322.0) ng/mL Total Bilirubin (0.2-1.3) mg/dL Lactate Dehydrogenase (313-618) U/L Total Protein (PEP) (6.2-8.2) g/dL Crossmatch Blood Bank Comment Reference Lab Result 10/06/21 10/06/21 10/06/21 Range/Units 05:59 05:59 05:59 WBC (3.8-10.6) k/uL RBC 2.12 L (4.30-5.90) m/uL Hgb 6.9 L* (13.0-17.5) gm/dL Hct 21.5 L (39.0-53.0) % MCV 101.2 H (80.0-100.0) fL MCHC (31.0-37.0) g/dL RDW 23.0 H (11.5-15.5) % Neutrophils # (1.3-7.7) k/uL Neutrophils # (Manual) 8.60 H (1.3-7.7) k/uL Lymphocytes # (Manual) 0.93 L (1.0-4.8) k/uL Metamyelocytes # (Man) 0.10 H (0) k/uL Nucleated RBCs 6 H (0-0) /100 WBC Macrocytosis Haptoglobin <10.0 L (31.2-198.0) mg/dL APTT (22.0-30.0) sec Chloride 109 H (98-107) mmol/L Glucose 126 H (74-99) mg/dL Ferritin (22.0-322.0) ng/mL Total Bilirubin 2.0 H (0.2-1.3) mg/dL Lactate Dehydrogenase 874 H (313-618) U/L Total Protein (PEP) (6.2-8.2) g/dL Crossmatch Blood Bank Comment Reference Lab Result Assessment and Plan Assessment: Acute severe anemia secondary to hemolytic anemia elevated indirect bilirubin secondary to above Nicotine dependence Plan: A pleasant 50 years old male who presents with acute severe hemolytic anemia Continue with anemia workup as per reproduction order processor team following the case closely Continue with IV Solu-Medrol recommended by reproduction order processor Monitor hemoglobin Counseling is provided for the patient for smoking cessation and he agrees but declines nicotine patch Labs and medication were reviewed.. Continue same treatment. Continue with symptomatic treatment. Resume home medication. Monitor lytes and vitals. DVT and GI prophylaxis. Further recommendations depends on the clinical course of the patient DVT prophylaxis: no Subcutaneous heparin Due to severe anemia . Also patient is mobile and large for DVT GI Prophylaxis: Pepcid Prognosis is guarded
--- NOTE | 2021-10-06 22:30 | P.PN ---
Subjective Progress Note Date: 10/06/21 Principal diagnosis: hemolytic Anemia hemoglobin responding Dr. Willett has spoken with blood bank confirm a warm antibody, etiology not completely known, prob recent infection. Objective - Vital Signs Vital signs: Vital Signs Temp 97.8 F 10/06/21 08:00 Pulse 71 10/06/21 11:00 Resp 18 10/06/21 11:00 BP 133/62 10/06/21 11:00 Pulse Ox 99 10/06/21 11:00 FiO2 Intake & Output 10/05/21 10/06/21 10/06/21 18:59 06:59 18:59 Intake Total 1275 310 Output Total 1 1 500 Balance 1274 309 -500 Weight 70.2 kg Intake: Intake, IV Titration 475 Amount Sodium Chloride 0.9% 1, 475 000 ml @ 75 mls/hr IV . [id number] [facility] Rx#:[id number] Oral 490 Blood Product 310 310 Rc As-1 Unit 310 [id number] Rc As-1 Unit 0 [id number] Rc As-1 Unit 310 [id number] Output: Urine 0 1 500 Stool 1 Other: # Voids 1 1 1 - Exam Ashy/Jaundice in color NAD Alert and oriented x3 Lungs CTA Abdomen soft LE no swelling - Labs CBC & Chem 7: 10/06/21 05:59 10/06/21 05:59 Labs: Abnormal Lab Results - Last 24 Hours (Table) 10/04/21 10/05/21 10/05/21 Range/Units 21:53 00:11 12:02 WBC (3.8-10.6) k/uL RBC 1.11 L (4.30-5.90) m/uL Hgb 3.8 L* (13.0-17.5) gm/dL Hct 12.4 L* (39.0-53.0) % MCV 112.3 H (80.0-100.0) fL MCHC 30.7 L (31.0-37.0) g/dL RDW 21.0 H (11.5-15.5) % Neutrophils # (1.3-7.7) k/uL Neutrophils # (Manual) (1.3-7.7) k/uL Lymphocytes # (Manual) (1.0-4.8) k/uL Metamyelocytes # (Man) 0.10 H (0) k/uL Nucleated RBCs 3 H (0-0) /100 WBC Macrocytosis Marked A Haptoglobin (31.2-198.0) mg/dL APTT (22.0-30.0) sec Chloride (98-107) mmol/L Glucose (74-99) mg/dL Ferritin 4234.0 H (22.0-322.0) ng/mL Total Bilirubin (0.2-1.3) mg/dL Lactate Dehydrogenase (313-618) U/L Total Protein (PEP) (6.2-8.2) g/dL Crossmatch See Detail Blood Bank [facility] Result See BBK REF Reports A 10/05/21 10/05/21 10/05/21 Range/Units 12:02 12:02 12:02 WBC (3.8-10.6) k/uL RBC (4.30-5.90) m/uL Hgb (13.0-17.5) gm/dL Hct (39.0-53.0) % MCV (80.0-100.0) fL MCHC (31.0-37.0) g/dL RDW (11.5-15.5) % Neutrophils # (1.3-7.7) k/uL Neutrophils # (Manual) (1.3-7.7) k/uL Lymphocytes # (Manual) (1.0-4.8) k/uL Metamyelocytes # (Man) (0) k/uL Nucleated RBCs (0-0) /100 WBC Macrocytosis Haptoglobin 20.5 L (31.2-198.0) mg/dL APTT (22.0-30.0) sec Chloride 111 H (98-107) mmol/L Glucose 118 H (74-99) mg/dL Ferritin (22.0-322.0) ng/mL Total Bilirubin 2.4 H (0.2-1.3) mg/dL Lactate Dehydrogenase 934 H (313-618) U/L Total Protein (PEP) 6.1 L (6.2-8.2) g/dL Crossmatch Blood Bank Comment Reference Lab Result 10/05/21 10/05/21 10/06/21 Range/Units 12:02 20:37 03:16 WBC 11.9 H (3.8-10.6) k/uL RBC 1.99 L 2.21 L (4.30-5.90) m/uL Hgb 6.4 L* D 7.2 L (13.0-17.5) gm/dL Hct 20.3 L 22.2 L (39.0-53.0) % MCV 101.8 H D 100.1 H (80.0-100.0) fL MCHC (31.0-37.0) g/dL RDW 22.6 H 22.2 H (11.5-15.5) % Neutrophils # 9.9 H (1.3-7.7) k/uL Neutrophils # (Manual) (1.3-7.7) k/uL Lymphocytes # (Manual) (1.0-4.8) k/uL Metamyelocytes # (Man) (0) k/uL Nucleated RBCs (0-0) /100 WBC Macrocytosis Haptoglobin (31.2-198.0) mg/dL APTT 21.1 L (22.0-30.0) sec Chloride (98-107) mmol/L Glucose (74-99) mg/dL Ferritin (22.0-322.0) ng/mL Total Bilirubin (0.2-1.3) mg/dL Lactate Dehydrogenase (313-618) U/L Total Protein (PEP) (6.2-8.2) g/dL [facility] Blood Bank Comment Reference Lab Result 10/06/21 10/06/21 10/06/21 Range/Units 05:59 05:59 05:59 WBC (3.8-10.6) k/uL RBC 2.12 L (4.30-5.90) m/uL Hgb 6.9 L* (13.0-17.5) gm/dL Hct 21.5 L (39.0-53.0) % MCV 101.2 H (80.0-100.0) fL MCHC (31.0-37.0) g/dL RDW 23.0 H (11.5-15.5) % Neutrophils # (1.3-7.7) k/uL Neutrophils # (Manual) 8.60 H (1.3-7.7) k/uL Lymphocytes # (Manual) 0.93 L (1.0-4.8) k/uL Metamyelocytes # (Man) 0.10 H (0) k/uL Nucleated RBCs 6 H (0-0) /100 WBC Macrocytosis Haptoglobin <10.0 L (31.2-198.0) mg/dL APTT (22.0-30.0) sec Chloride 109 H (98-107) mmol/L Glucose 126 H (74-99) mg/dL Ferritin (22.0-322.0) ng/mL Total Bilirubin 2.0 H (0.2-1.3) mg/dL Lactate Dehydrogenase 874 H (313-618) U/L Total Protein (PEP) (6.2-8.2) g/dL Crossmatch Blood Bank Comment Reference Lab Result Assessment and Plan (1) Hemolytic anemia Narrative/Plan: - Solu-medrol 60mg q6, PPI - Transfuse less than 6 - IV Hydration @75 - Folic Acid continue - Warm protein identified. Await final results and recovery. Current Visit: Yes Status: Acute Code(s): D58.9 - HEREDITARY HEMOLYTIC ANEMIA, UNSPECIFIED SNOMED Code(s): 26488711 (2) Negative direct Malika test Current Visit: Yes Status: Acute Code(s): ZBG3517 - SNOMED Code(s): 038754319 Plan: Dr. Amor: I have completed the full history and ohysical and developed the servando jimenez impression and plan, agree with dictation, dictated as ascribe.
[2021-10-07] MEDS: methylPREDNISolone SOD SUCCI 125 MG/2 ML VIAL IV SCH ×4 (05:23→23:25)
[2021-10-07] MEDS: PANTOPRAZOLE 40 MG TABLET PO SCH ×2 (08:59→17:55)
[2021-10-07] MEDS: FOLIC ACID 1 MG TAB PO SCH (08:59)
[2021-10-07 11:35] LABS: African American GFR (CKD) 133.1 (60.0-200.0); Albumin 4.5 g/dL (3.8-4.9); Albumin/Globulin Ratio 2.07 (1.60-3.17); Anion Gap 12.9 mmol/L (10.00-18.00); BUN/Creat Ratio 21.51 Ratio (12.00-20.00); Bilirubin, Conjugated 0.45 mg/dL (0.20-0.40); Bilirubin,Unconjugated 1.41 mg/dL (0.20-1.00); Blood Urea Nitrogen 19.1 mg/dL (9.0-27.0); Calcium 9.3 mg/dL (8.7-10.3); Carbon Dioxide 23.9 mmol/L (20.0-27.5); Globulin 2.2 g/dL (1.6-3.3); Magnesium 2.3 mg/dL (1.5-2.4); Non-African American GFR(CKD) 114.8 (60.0-200.0); Total Bilirubin 1.9 mg/dL (0.30-1.20); Total Protein 6.7 g/dL (6.2-8.2)
[2021-10-07 13:08] LABS: Anisocytosis Moderate; Basophils % (A) 0 %; Eosinophils % (A) 0 %; HCT 24.8 % (39.0-53.0); HGB 7.8 gm/dL (13.0-17.5); Hypochromasia Moderate; Lymphocytes # (A) 1.3 k/uL (1.0-4.8); Lymphocytes % (A) 12 %; MCHC 31.5 g/dL (31.0-37.0); MCV 104.8 fL (80.0-100.0); Macrocytosis Marked; Mean Platelet Volume 8.1; Monocytes # (A) 0.8 k/uL (0-1.0); Monocytes % (A) 7 %; Neutrophils # (A) 8.6 k/uL (1.3-7.7); Neutrophils % (A) 79 %; Platelet Count 368 k/uL (150-450); Poikilocytosis Slight; RBC 2.36 m/uL (4.30-5.90); WBC 10.8 k/uL (3.8-10.6)
--- NOTE | 2021-10-07 16:18 | P.PN ---
Subjective Progress Note Date: 10/07/21 The patient is stable clinically compared to yesterday. No obvious bleeding. No jaundice clinically appears to be diminished. He reports improved appetite. Objective - Vital Signs Vital signs: Vital Signs Temp 98.2 F 10/07/21 14:00 Pulse 67 10/07/21 14:00 Resp 18 10/07/21 14:00 BP 130/74 10/07/21 14:00 Pulse Ox 100 10/07/21 14:00 FiO2 Intake & Output 10/06/21 10/07/21 10/07/21 18:59 06:59 18:59 Intake Total 900 118 Output Total 500 1 1 Balance -500 899 117 Weight 70.3 kg Intake: Intake, IV Titration 900 Amount Sodium Chloride 0.9% 1, 900 000 ml @ 75 mls/hr IV . [id number] [facility] Rx#:[id number] Oral 118 Output: Urine 500 Stool 1 1 Other: Voiding Method Toilet Toilet # Voids 0 1 - Constitutional General appearance: Present: no acute distress - EENT Eyes: Present: EOMI ENT: Present: hearing grossly normal, normal oropharynx - Respiratory Respiratory: bilateral: CTA - Cardiovascular Rhythm: regular Heart sounds: normal: S1, S2 - Gastrointestinal General gastrointestinal: Present: normal bowel sounds, soft - Integumentary Integumentary: Present: normal - Neurologic Neurologic: Present: CNII-XII intact - Musculoskeletal Musculoskeletal: Present: generalized weakness, strength equal bilaterally - Psychiatric Psychiatric: Present: A&O x's 3, appropriate affect - Labs CBC & Chem 7: 10/07/21 12:48 10/07/21 06:41 Labs: Abnormal Lab Results - Last 24 Hours (Table) 10/07/21 10/07/21 Range/Units 06:41 12:48 WBC 10.8 H (3.8-10.6) k/uL RBC 2.36 L (4.30-5.90) m/uL Hgb 7.8 L (13.0-17.5) gm/dL Hct 24.8 L (39.0-53.0) % MCV 104.8 H (80.0-100.0) fL RDW 23.0 H (11.5-15.5) % Neutrophils # 8.6 H (1.3-7.7) k/uL Macrocytosis Marked A BUN/Creatinine Ratio 21.51 H (12.00-20.00) Ratio Glucose 129 H (70-110) mg/dL Total Bilirubin 1.90 H (0.30-1.20) mg/dL Conjugated Bilirubin 0.45 H (0.20-0.40) mg/dL Unconjugated Bilirubin 1.41 H (0.20-1.00) mg/dL Microbiology - Last 24 Hours (Table) 10/05/21 21:01 Blood Culture - Preliminary Blood No Growth after 24 hours Assessment and Plan (1) Hemolytic anemia Narrative/Plan: This appears to be fairly stable today with hemoglobin actually improved compared to 7.8 versus 6.9. Actually hemolytic parameters apparently showing a somewhat improved trend. Continue steroids. - It was again discussed with the patient and his family that the primary differential at this time appears to be cold agglutinin induced hemolysis. Underlying primary hematological disorder such as a paraproteinemia is not ruled out. However results in this respect so far, specifically light chain levels are normal. Protein electrophoresis studies pending. 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 Given his presentation, this is more likely to have been induced by an infection. In that situation if there appears to be improvement spontaneously, and/or with steroids, the patient may not need any other specific treatment. Otherwise more specific treatment related to cold agglutinin disease will be instituted if needed. - Continue to monitor. Transfuse to keep hemoglobin greater than 6. Current Visit: Yes Status: Acute Code(s): D58.9 - HEREDITARY HEMOLYTIC ANEMIA, UNSPECIFIED SNOMED Code(s): 22030487
--- NOTE | 2021-10-07 17:02 | P.PN ---
Subjective This is a pleasant 50 years old male with no significant past medical history His been feeling sick on and off for the last few weeks, his was in his becoming pale and she got concerned However yesterday when he passed out next to his house for about 5-10 seconds she got concerned and met him come to emergency room. Patient also complaining of from presyncope However he denies any headache or weakness or numbness. No blurred vision or sl urred speech. No chest pain or dyspnea. No abdominal pain or nausea vomiting or diarrhea. However patient vomited twice to days ago with no blood. No urinary complaints of urgency or hesitancy. No dysuria. He denies drinking alcohol but he smokes about 1 pack per day and he is counseled to quit and he agrees but declines nicotine patch. He uses characterization marijuana at times. He denies any family history of blood diseases He was transferred from [place]. Hemoglobin of 4.7. Jaundice, Pale. which pt states is been happening since saturday On reviewing the records from [facility]: CT of the chest, with CT of the abdomen and pelvis with contrast showing no acute cardiopulmonary process. No focal consolidations. No pneumothoraces is or pleural effusions. Nonobstructive bowel gas pattern. No free air or fluid. No mesenteric lymphadenopathy or mass. There is a short segment of distal transverse colon proximal descending colon at the splenic flexure with mildly thickened bowel wall which could reflect a very low-grade colitis or possibly incomplete distention. Dorsal structures are intact Also he had CT of the cervical spine showed no acute process. Chronic appearing less than 5% compression deformity of the superior endplate of T1 vertebral body, MRI would be helpful. CT of the brain dated for acute process. Hemodynamically he is a stable and he is afebrile. Labs reviewed, hemoglobin on presentation was 4.5, repeat hemoglobin is 4.4. WBC is 11.6. Platelet count normal 390. Reticulocyte count is elevated at 21.2. BMP is unremarkable except for mildly elevated glucose is 125. Total bilirubin is elevated at 2.0, direct bilirubin is elevated at 1.6 while direct bilirubin is 0. Liver enzymes AST, ALT and alkaline phosphatase not elevated Lactate dehydrogenase is high at 1068. . Urinalysis is normal. In the emergency room he received salmeterol 1000 mg, Tylenol and normal sinus and a 5 mm prior He is admitted to the ICU with pulmonary/critical care team consult and hematology consults 10/06/2021 Patient is symptomatic working in the room feeling much better and back to his normal self. He is hemodynamically stable. However his hemoglobin is still low 6.9 after 3 units of blood transfusion. His haptoglobin is still low. He still on IV Solu-Medrol and still other workup ordered by splitter tender team is pending. Patient informed and he agrees to stay. IV fluids was discontinued 10/07/2021 Patient still looks clinically doing well at bedside however he feels more tired today. His hemoglobin improved 6.9 up to 7.8. Her medicines on IV Solu-Medrol Further workup still pending with hematology team on the case following the patient closely Objective - Vital Signs Vital signs: Vital Signs Temp 97.9 F 10/07/21 08:00 Pulse 75 10/07/21 08:00 Resp 18 10/07/21 08:00 BP 118/61 10/07/21 08:00 Pulse Ox 100 10/07/21 08:00 FiO2 Intake & Output 10/06/21 10/07/21 10/07/21 18:59 06:59 18:59 Intake Total 900 Output Total 500 1 Balance -500 899 Weight 70.3 kg Intake: Intake, IV Titration 900 Amount Sodium Chloride 0.9% 1, 900 000 ml @ 75 mls/hr IV . [id number] [facility] Rx#:[id number] Output: Urine 500 Stool 1 Other: Voiding Method Toilet # Voids 0 1 - Exam GENERAL: The patient is alert and oriented x3, not in any acute distress. Well developed, well nourished. HEENT: Pupils are round and equally reacting to light. EOMI. No scleral icterus. No conjunctival pallor. Normocephalic, atraumatic. No pharyngeal erythema. No thyromegaly. CARDIOVASCULAR: S1 and S2 present. No murmurs, rubs, or gallops. PULMONARY: Chest is clear to auscultation, no wheezing or crackles. ABDOMEN: Soft, nontender, nondistended, normoactive bowel sounds. No palpable organomegaly. MUSCULOSKELETAL: No joint swelling or deformity. EXTREMITIES: No cyanosis, clubbing, or pedal edema. NEUROLOGICAL: Gross neurological examination did not reveal any focal deficits. SKIN: No rashes. no petechiae. - Labs CBC & Chem 7: 10/07/21 12:48 10/07/21 06:41 Labs: Abnormal Lab Results - Last 24 Hours (Table) 10/05/21 Range/Units 00:11 Crossmatch See Detail Blood Bank Comment Sent to [facility] A Reference Lab Result See [facility] REF Reports A Microbiology - Last 24 Hours (Table) 10/05/21 21:01 Blood Culture - Preliminary Blood No Growth after 24 hours Assessment and Plan Assessment: Acute severe anemia secondary to hemolytic anemia elevated indirect bilirubin secondary to above Nicotine dependence Plan: A pleasant 50 years old male who presents with acute severe hemolytic anemia Continue with anemia workup as per splitter tender team following the case closely Continue with IV Solu-Medrol recommended by splitter tender Monitor hemoglobin Counseling is provided for the patient for smoking cessation and he agrees but declines nicotine patch Labs and medication were reviewed.. Continue same treatment. Continue with symptomatic treatment. Resume home medication. Monitor lytes and vitals. DVT and GI prophylaxis. Further recommendations depends on the clinical course of the patient DVT prophylaxis: no Subcutaneous heparin Due to severe anemia . Also patient is mobile and large for DVT GI Prophylaxis: Pepcid Prognosis is guarded
[2021-10-08] MEDS: methylPREDNISolone SOD SUCCI 125 MG/2 ML VIAL IV SCH ×2 (06:02→12:06)
[2021-10-08 08:01] LABS: Total Bilirubin 1.4 mg/dL (0.2-1.3)
[2021-10-08 08:06] LABS: Anisocytosis Moderate; HCT 23.8 % (39.0-53.0); HGB 7.5 gm/dL (13.0-17.5); Hypochromasia Moderate; MCH 33.5 pg (25.0-35.0); MCHC 31.4 g/dL (31.0-37.0); MCV 106.7 fL (80.0-100.0); Macrocytosis Marked; Mean Platelet Volume 8.1; Platelet Count 340 k/uL (150-450); Poikilocytosis Slight; RBC 2.23 m/uL (4.30-5.90); RDW 23.3 % (11.5-15.5); WBC 7.7 k/uL (3.8-10.6)
[2021-10-08] MEDS: FOLIC ACID 1 MG TAB PO SCH (09:09)
[2021-10-08] MEDS: PANTOPRAZOLE 40 MG TABLET PO SCH ×2 (09:09→15:18)
[2021-10-08 10:14] LABS: Reticulocyte % 22.6 % (0.5-2.0)
--- NOTE | 2021-10-08 14:20 | P.PN ---
Subjective Progress Note Date: 10/08/21 The patient denies any specific new complaints. He does want to go home as soon as possible. Does have some intermittent agitation and shakiness related to steroids. Objective - Vital Signs Vital signs: Vital Signs Temp 98.1 F 10/08/21 12:22 Pulse 66 10/08/21 12:22 Resp 14 10/08/21 12:22 BP 136/73 10/08/21 12:22 Pulse Ox 100 10/08/21 12:22 FiO2 Intake & Output 10/07/21 10/08/21 10/08/21 18:59 06:59 18:59 Intake Total 596 600 480 Output Total 1 1 Balance 595 600 479 Weight 67.5 kg Intake: Oral 596 600 480 Output: Stool 1 1 Other: Voiding Method Toilet Toilet Toilet # Voids 3 - Constitutional General appearance: Present: no acute distress - EENT Eyes: Present: EOMI ENT: Present: hearing grossly normal, normal oropharynx - Respiratory Respiratory: bilateral: CTA - Gastrointestinal General gastrointestinal: Present: soft - Integumentary Integumentary: Present: normal - Neurologic Neurologic: Present: CNII-XII intact - Musculoskeletal Musculoskeletal: Present: strength equal bilaterally - Labs CBC & Chem 7: 10/08/21 06:54 10/07/21 06:41 Labs: Abnormal Lab Results - Last 24 Hours (Table) 10/05/21 10/08/21 10/08/21 Range/Units 00:11 06:54 06:54 RBC 2.23 L (4.30-5.90) m/uL Hgb 7.5 L (13.0-17.5) gm/dL Hct 23.8 L (39.0-53.0) % MCV 106.7 H (80.0-100.0) fL RDW 23.3 H (11.5-15.5) % Macrocytosis Marked A Retic Count 22.6 H (0.5-2.0) % Total Bilirubin 1.4 H (0.2-1.3) mg/dL Lactate Dehydrogenase 689 H (313-618) U/L Crossmatch See Detail Microbiology - Last 24 Hours (Table) 10/05/21 21:01 Blood Culture - Preliminary Blood No Growth after 48 hours Assessment and Plan (1) Hemolytic anemia Narrative/Plan: The patient's hemoglobin remained stable in the safe range that is 7+. Once his markers continue to show improvement with decrease in bilirubin and LDH. - Protein electrophoresis studies and cold agglutinin testing results still pending. - The patient's improvement could be spontaneous, and/or due to steroids. Change steroids to by mouth. It was discussed with the patient that it would definitely be preferable to ensure that he is stable, over a day after changing to by mouth steroids. In that case he can be discharged on a steroid taper and follow-up outpatient. - As discussed previously, even if cold agglutinin is confirmed, the patient may not require more aggressive treatment if he improves with ongoing management. Current Visit: Yes Status: Acute Code(s): D58.9 - HEREDITARY HEMOLYTIC ANEMIA, UNSPECIFIED SNOMED Code(s): 77721654
[2021-10-08] MEDS: predniSONE 20 MG TAB PO SCH (15:18)
[2021-10-08 18:28] LABS: Albumin 3.77 g/dL (3.80-4.90); Gamma Globulin 0.84 g/dL (0.70-1.50)
--- NOTE | 2021-10-09 07:35 | P.PN ---
Subjective This is a pleasant 50 years old male with no significant past medical history His been feeling sick on and off for the last few weeks, his was in his becoming pale and she got concerned However yesterday when he passed out next to his house for about 5-10 seconds she got concerned and met him come to emergency room. Patient also complaining of from presyncope However he denies any headache or weakness or numbness. No blurred vision or sl urred speech. No chest pain or dyspnea. No abdominal pain or nausea vomiting or diarrhea. However patient vomited twice to days ago with no blood. No urinary complaints of urgency or hesitancy. No dysuria. He denies drinking alcohol but he smokes about 1 pack per day and he is counseled to quit and he agrees but declines nicotine patch. He uses characterization marijuana at times. He denies any family history of blood diseases He was transferred from [place]. Hemoglobin of 4.7. Jaundice, Pale. which pt states is been happening since saturday On reviewing the records from [facility]: CT of the chest, with CT of the abdomen and pelvis with contrast showing no acute cardiopulmonary process. No focal consolidations. No pneumothoraces is or pleural effusions. Nonobstructive bowel gas pattern. No free air or fluid. No mesenteric lymphadenopathy or mass. There is a short segment of distal transverse colon proximal descending colon at the splenic flexure with mildly thickened bowel wall which could reflect a very low-grade colitis or possibly incomplete distention. Dorsal structures are intact Also he had CT of the cervical spine showed no acute process. Chronic appearing less than 5% compression deformity of the superior endplate of T1 vertebral body, MRI would be helpful. CT of the brain dated for acute process. Hemodynamically he is a stable and he is afebrile. Labs reviewed, hemoglobin on presentation was 4.5, repeat hemoglobin is 4.4. WBC is 11.6. Platelet count normal 390. Reticulocyte count is elevated at 21.2. BMP is unremarkable except for mildly elevated glucose is 125. Total bilirubin is elevated at 2.0, direct bilirubin is elevated at 1.6 while direct bilirubin is 0. Liver enzymes AST, ALT and alkaline phosphatase not elevated Lactate dehydrogenase is high at 1068. . Urinalysis is normal. In the emergency room he received salmeterol 1000 mg, Tylenol and normal sinus and a 5 mm prior He is admitted to the ICU with pulmonary/critical care team consult and hematology consults 10/06/2021 Patient is symptomatic working in the room feeling much better and back to his normal self. He is hemodynamically stable. However his hemoglobin is still low 6.9 after 3 units of blood transfusion. His haptoglobin is still low. He still on IV Solu-Medrol and still other workup ordered by tire trimmer hand team is pending. Patient informed and he agrees to stay. IV fluids was discontinued 10/07/2021 Patient still looks clinically doing well at bedside however he feels more tired today. His hemoglobin improved 6.9 up to 7.8. Her medicines on IV Solu-Medrol Further workup still pending with hematology team on the case following the patient closely 10/08/2021 Patient is awake and alert, he denies any specific symptom however he looks ag itated slightly and asking to lower the dose of steroids. Also patient asking when he can go home. I explained to the patient is problems and management plan and his options and he verbalized understanding and acceptance. Family at bedside upon patient request and their questions answered. Hemoglobin 7.5. WBC 7.7. Bilirubin 1.4, LDH 689. He remains on prednisone 60 mg Objective - Vital Signs Vital signs: Vital Signs Temp 98.1 F 10/08/21 06:20 Pulse 86 10/08/21 10:00 Resp 16 10/08/21 10:00 BP 115/66 10/08/21 06:20 Pulse Ox 99 10/08/21 06:20 FiO2 Intake & Output 10/07/21 10/08/21 10/08/21 18:59 06:59 18:59 Intake Total 596 600 240 Output Total 1 1 Balance 595 600 239 Weight 67.5 kg Intake: Oral 596 600 240 Output: Stool 1 1 Other: Voiding Method Toilet Toilet Toilet # Voids 3 - Exam GENERAL: The patient is alert and oriented x3, not in any acute distress. Well developed, well nourished. HEENT: Pupils are round and equally reacting to light. EOMI. No scleral icterus. No conjunctival pallor. Normocephalic, atraumatic. No pharyngeal erythema. No thyromegaly. CARDIOVASCULAR: S1 and S2 present. No murmurs, rubs, or gallops. PULMONARY: Chest is clear to auscultation, no wheezing or crackles. ABDOMEN: Soft, nontender, nondistended, normoactive bowel sounds. No palpable organomegaly. MUSCULOSKELETAL: No joint swelling or deformity. EXTREMITIES: No cyanosis, clubbing, or pedal edema. NEUROLOGICAL: Gross neurological examination did not reveal any focal deficits. SKIN: No rashes. no petechiae. - Labs CBC & Chem 7: 10/08/21 06:54 10/07/21 06:41 Labs: Abnormal Lab Results - Last 24 Hours (Table) 10/05/21 10/07/21 10/07/21 Range/Units 00:11 06:41 12:48 WBC 10.8 H (3.8-10.6) k/uL RBC 2.36 L (4.30-5.90) m/uL Hgb 7.8 L (13.0-17.5) gm/dL Hct 24.8 L (39.0-53.0) % MCV 104.8 H (80.0-100.0) fL RDW 23.0 H (11.5-15.5) % Neutrophils # 8.6 H (1.3-7.7) k/uL Macrocytosis Marked A Retic Count (0.5-2.0) % BUN/Creatinine Ratio 21.51 H (12.00-20.00) Ratio Glucose 129 H (70-110) mg/dL Total Bilirubin 1.90 H (0.30-1.20) mg/dL Conjugated Bilirubin 0.45 H (0.20-0.40) mg/dL Unconjugated Bilirubin 1.41 H (0.20-1.00) mg/dL Lactate Dehydrogenase (313-618) U/L Crossmatch See Detail 10/08/21 10/08/21 Range/Units 06:54 06:54 WBC (3.8-10.6) k/uL RBC 2.23 L (4.30-5.90) m/uL Hgb 7.5 L (13.0-17.5) gm/dL Hct 23.8 L (39.0-53.0) % MCV 106.7 H (80.0-100.0) fL RDW 23.3 H (11.5-15.5) % Neutrophils # (1.3-7.7) k/uL Macrocytosis Marked A Retic Count 22.6 H (0.5-2.0) % BUN/Creatinine Ratio (12.00-20.00) Ratio Glucose (70-110) mg/dL Total Bilirubin 1.4 H (0.30-1.20) mg/dL Conjugated Bilirubin (0.20-0.40) mg/dL Unconjugated Bilirubin (0.20-1.00) mg/dL Lactate Dehydrogenase 689 H (313-618) U/L Crossmatch Microbiology - Last 24 Hours (Table) 10/05/21 21:01 Blood Culture - Preliminary Blood No Growth after 48 hours Assessment and Plan Assessment: Acute severe anemia secondary to hemolytic anemia elevated indirect bilirubin secondary to above Nicotine dependence Plan: A pleasant 50 years old male who presents with acute severe hemolytic anemia Continue with anemia workup as per tire trimmer hand team following the case closely Continue with IV Solu-Medrol recommended by tire trimmer hand. We will defer the steroid management to hematology/oncology team recommendation Monitor hemoglobin Counseling is provided for the patient for smoking cessation and he agrees but declines nicotine patch Labs and medication were reviewed.. Continue same treatment. Continue with symptomatic treatment. Resume home medication. Monitor lytes and vitals. DVT and GI prophylaxis. Further recommendations depends on the clinical course of the patient DVT prophylaxis: no Subcutaneous heparin Due to severe anemia . Also patient is mobile and large for DVT GI Prophylaxis: Pepcid Prognosis is guarded
[2021-10-09] MEDS: FOLIC ACID 1 MG TAB PO SCH (09:02)
[2021-10-09] MEDS: predniSONE 20 MG TAB PO SCH (09:02)
[2021-10-09] MEDS: PANTOPRAZOLE 40 MG TABLET PO SCH (09:02)
[2021-10-09 11:15] LABS: Anisocytosis Moderate; HCT 25.7 % (39.0-53.0); HGB 8.3 gm/dL (13.0-17.5); Hypochromasia Slight; MCH 34.7 pg (25.0-35.0); MCHC 32.2 g/dL (31.0-37.0); MCV 107.6 fL (80.0-100.0); Macrocytosis Marked; Platelet Count 360 k/uL (150-450); RBC 2.39 m/uL (4.30-5.90); RDW 21.4 % (11.5-15.5)
[2021-10-09 11:19] LABS: Reticulocyte % 26.2 % (0.5-2.0)
[2021-10-09 11:25] LABS: ALT 25 U/L (4-49); AST 19 U/L (17-59); African American GFR (CKD) >90 (>60 ml/min/1.73 sqM); Albumin/Globulin Ratio 1.6; Alkaline Phosphatase 41 U/L (38-126); Anion Gap 7 mmol/L; Blood Urea Nitrogen 19 mg/dL (9-20); Calcium 8.7 mg/dL (8.4-10.2); Carbon Dioxide 27 mmol/L (22-30); Chloride 105 mmol/L (98-107); Globulin 2.5 g/dL; Glucose 90 mg/dL (74-99); LDH 631 U/L (313-618); Non-African American GFR(CKD) >90 (>60 ml/min/1.73 sqM); Potassium 3.5 mmol/L (3.5-5.1); Sodium 139 mmol/L (137-145); Total Bilirubin 1.2 mg/dL (0.2-1.3); Total Protein 6.5 g/dL (6.3-8.2)
[2021-10-09 12:38] VITALS: BP 144/79; PULSE 70; RESP 16; TEMP 98
--- NOTE | 2021-10-09 17:15 | P.PN ---
Subjective Progress Note Date: 10/09/21 Principal diagnosis: cold agglutin hemolysis In f/u pt denies fever, nausea, no other physical c/o, anxious to go home. Objective - Vital Signs Vital signs: Vital Signs Temp 97.9 F 10/09/21 05:25 Pulse 61 10/09/21 05:25 Resp 18 10/09/21 05:25 BP 123/78 10/09/21 05:25 Pulse Ox 100 10/09/21 05:25 FiO2 Intake & Output 10/08/21 10/09/21 10/09/21 18:59 06:59 18:59 Intake Total 960 750 Output Total 1 Balance 959 750 Weight 69.4 kg Intake: Oral 960 750 Output: Stool 1 Other: Voiding Method Toilet Toilet Toilet # Voids 2 - Constitutional General appearance: Present: average body habitus, cooperative, no acute distress - EENT Eyes: Present: EOMI ENT: Present: hearing grossly normal - Respiratory Details: resp even and unlabored - Integumentary Integumentary: Present: normal - Neurologic Neurologic: Present: CNII-XII intact - Musculoskeletal Musculoskeletal: Present: strength equal bilaterally - Psychiatric Psychiatric: Present: A&O x's 3, appropriate affect, intact judgment & insight - Labs CBC & Chem 7: 10/09/21 10:19 10/09/21 10:19 Labs: Abnormal Lab Results - Last 24 Hours (Table) 10/05/21 Range/Units 12:02 Albumin (PEP) 3.77 L (3.80-4.90) g/dL [id number] 0.46 L (0.60-1.00) g/dL Microbiology - Last 24 Hours (Table) 10/05/21 21:01 Blood Culture - Preliminary Blood No Growth after 72 hours Assessment and Plan (1) Hemolytic anemia Status: Acute Priority: High Code(s): D58.9 - HEREDITARY HEMOLYTIC ANEMIA, UNSPECIFIED SNOMED Code(s): 68537332 (2) Symptomatic anemia Status: Acute Priority: High Code(s): D64.9 - ANEMIA, UNSPECIFIED SNOMED Code(s): 475783339 Plan: Dr. Willett discussed with the pt the unpredictable nature of hemolytic anemia- unknown triggers, random episodes. Encouraged to f/u weekly for CBC for a few weeks to assess stability of Hgb. Pt agreed. He will be contacted for appt. Pt started on steroids. Taper and PPI Erx to pt pharmacy MM work up was neg LDH and bili trending down today, Hgb stable. Discussed with Attending DIRECTOR OF COMMUNITY CENTER attests: I have preformed H&P, seen and examined patient, developed impression and plan of care. Discussed with dictator. Agree with documentation, dictated as a scribe.
[2021-10-10 19:40] LABS: Cold Agglutinins NONE DETECTED Titer
--- NOTE | 2021-10-11 08:36 | P.DS ---
Providers Date of admission: 10/04/21 23:06 Expected date of discharge: 10/09/21 Attending physician: Mark Hernandez MD Consults: 10/04/21 23:07 Consult Physician Routine Consulting Provider: Brando Willett Consult Reason/Comments: Anemia of unknown etiology Do you want consulting provider notified?: Yes, Notify in am 10/05/21 04:44 Consult Physician Stat Consulting Provider: Ac Blanchard Consult Reason/Comments: ICU Do you want consulting provider notified?: Already Contacted Primary care physician: Stated None Hospital Course: Final diagnosis Acute severe anemia secondary to hemolytic anemia elevated indirect bilirubin secondary to above Nicotine dependence GI prophylaxis DVT prophylaxis Full code Discharge disposition Patient is being discharged in a stable condition with guarded prognosis to home. Patient will follow-up with his primary care provider in the outpatient setting upon discharge. Patient is to follow-up with hematology in one week as scheduled. Patient will be continued on a prednisone taper per hematology along with oral Protonix twice daily. Total time taken is greater than 35 minutes. Hospital course This is a 30-year-old male who was recently admitted with increasing weakness and fatigue becoming more pale and possible syncopal episode and was being closely monitored. Hemoglobin was found to be 4.7 at [facility] and was transferred here for further evaluation. Patient was seen and evaluated by hematology and further workup in process and patient did receive blood and hemoglobin today has improved and is 8.3. Patient also started on steroid taper per hematology and will follow-up in one week. Patient reports to feeling better and would like to go home today. Currently no reports of chest pain, shortness of breath, or palpitations. Patient is afebrile. No reports of nausea or vomiting and patient is tolerating diet. Patient will be discharged home today today. Physical exam: Gen: This is a 30-year-old male awake, alert and oriented 3 HEENT: Head is atraumatic, normocephalic. Pupils equal, round. Sclerae is anicteric. NECK: Supple. No JVD. No lymphadenopathy. No thyromegaly. LUNGS: Clear to auscultation. No wheezes or rhonchi. No intercostal retractions. HEART: Regular rate and rhythm. No murmur. ABDOMEN: Soft. Bowel sounds are present. No masses. No tenderness. EXTREMITIES: No pedal edema. No calf tenderness. NEUROLOGICAL: Patient is awake, alert and oriented x3. Cranial nerves 2 through 12 are grossly intact. Please refer to medication reconciliation sheet for a list of medications. The impression and plan of care has been dictated by Belle Matthew, Nurse Practitioner as directed. Dr. Rona MD I have performed a history and examination and MDM of this patient, discussed the same with the dictator, and agree with the dictator's assessment and plan as written ,documented as a scribe. Based on total visit time, I have performed more than 50% of the visit. Patient Condition at Discharge: Stable Plan - Discharge Summary New Discharge Prescriptions: New predniSONE [Deltasone] 60 mg PO DAILY #74 tab Pantoprazole [Protonix] 40 mg PO BID #60 tab Folic Acid 1 mg PO DAILY 30 Days #30 tab Discharge Medication List Folic Acid 1 mg PO DAILY 30 Days #30 tab 10/09/21 [Rx] Pantoprazole [Protonix] 40 mg PO BID #60 tab 10/09/21 [Rx] predniSONE [Deltasone] 60 mg PO DAILY #74 tab 10/09/21 [Rx] Follow up Appointment(s)/Referral(s): Elsy Nolan, NPC [Nurse Practitioner] - 1 Week ( office will call patient and schedule appt time and date.) None,Stated [Primary Care Provider] - 1-2 days Ambulatory/Diagnostic Orders: Complete Blood Count w/diff [LAB.AMB] Time Frame: 3 Days, Location: None Selected Patient Instructions/Handouts: Prednisone (By mouth), Folic Acid (By mouth), Pantoprazole (By mouth), Hemolytic Anemia (DC), Complete Blood Count (GEN), Anemia (DC) Activity/Diet/Wound Care/Special Instructions: activity limited until follow up follow up with primary care provider on discharge follow up with hematology in 1-2 weeks repeat labs in 2-3 days continue steroid taper Discharge Disposition: HOME SELF-CARE
== END 2021-10-09 13:45 | disposition home or self-care (01) | DRG 810 ==
LOC: EC 20:35 → 3SCARD 23:06 → 2SICU 10-05 04:18 → 5NMEDONC 10-06 18:08
PROVIDERS: ADMIT Internal Medicine; ATTEND Internal Medicine
PROC: 30233N1 Transfusion of Nonautologous Red Blood Cells into Peripheral Vein, Percutaneous Approach (ICD-10-PCS; principal; 2021-10-05)
DX: D59.9 Acquired hemolytic anemia, unspecified (principal); Z20.822 Contact with and (suspected) exposure to COVID-19; F17.210 Nicotine dependence, cigarettes, uncomplicated; E80.6 Other disorders of bilirubin metabolism; W19.XXXA Unspecified fall, initial encounter; Z71.6 Tobacco abuse counseling
CPT/HCPCS: 36415; 80048; 80053; 80076; 81003; 82247; 82248; 82607; 82728; 82746; 82784; 83010; 83021; 83540; 83550; 83615; 83735; 83883; 83921; 84165; 85025; 85027; 85045; 85610; 85730; 86038; 86140; 86157; 86334; 86431; 86850; 86870; 86880; 86900; 86901; 86920; 87040; 87252; 87498; 87502; 87529; 87634; 87798; 96360; 96361; 99285